=== PATIENT | male | born 1985 | race Two or more races ===

== ENCOUNTER 2025-09-05 13:58 | Emergency (ER) | payer OTHER, SELFPAY ==
[2025-09-05 13:58] VITALS: BP 162/104; PULSE 53; RESP 18; TEMP 36.7; O2SAT 100
[2025-09-05 14:00] VITALS: BMI 27.4
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
[2025-09-05 14:17] VITALS: PULSE 47; O2SAT 98
[2025-09-05] MEDS: ACETAMINOPHEN 500 MG TABLET 1000 MG PO (14:29)
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
[2025-09-05 15:00] VITALS: BP 180/118; PULSE 63; RESP 16; TEMP 36.9; O2SAT 99
--- NOTE | 2025-09-05 15:10 | PC.NURSE ---
pt b/p now 180/118 hr 49 notified will add orders for b/p
[2025-09-05 15:14] VITALS: BP 180/118; PULSE 67
[2025-09-05 16:46] VITALS: BP 161/102; PULSE 57; RESP 16; TEMP 36.9; O2SAT 99
== END 2025-09-05 17:09 ==
PROVIDERS: Emergency Provider Emergency Medicine
DX: S00.431A Contusion of right ear, initial encounter (principal); Y09 Assault by unspecified means
CPT/HCPCS: 70450; 99283; A9270